=== PATIENT | female | born 1965 | race African-American/Black ===

== ENCOUNTER 2023-01-28 19:57 | Emergency (ER) | payer OTHER ==
[2023-01-28 21:37] LABS: SARS-CoV-2 NAA Rapid Test Not Detected (NotDetected)
== END 2023-01-28 20:55 | disposition home or self-care (01) ==
LOC: CSHERS 19:57
DX: H66.91 Otitis media, unspecified, right ear (principal); H60.91 Unspecified otitis externa, right ear; I10 Essential (primary) hypertension; E11.9 Type 2 diabetes mellitus without complications; F17.210 Nicotine dependence, cigarettes, uncomplicated; Z20.822 Contact with and (suspected) exposure to COVID-19
CPT/HCPCS: 99282